=== PATIENT | male | born 1950 | race Hispanic/Latino ===

== ENCOUNTER 2017-09-16 15:34 | Inpatient (IN) | payer OTHER, BC ==
[2017-09-16 16:16] VITALS: BMI 22.5
[2017-09-16] MEDS ORDERED: Sodium Chloride 0.9% 1,000 ML IV STA ×2 (16:19→16:54)
[2017-09-16] MEDS ORDERED: HYDROmorphone 1 mg/ml ISec IVP PRN (16:19)
[2017-09-16] MEDS ORDERED: Mesalamine 800 mg DR Tab PO SCH (16:30)
[2017-09-16] MEDS ORDERED: HYDROmorphone 0.5 mg/0.5 ml ISec IVP PRN (17:20)
[2017-09-16] MEDS: guaiFENesin-DM 600-30 mg ER Tab PO SCH (17:45)
[2017-09-16] MEDS: MethylPREDNISolone 40 mg Vial IVP SCH ×2 (17:47→23:51)
[2017-09-16] MEDS ORDERED: Piperacillin/Tazobact 3.375 gm 100 ML IVPB SCH (18:00)
[2017-09-16] MEDS ORDERED: Influenza Vaccine 60 mcg/0.5 mL SYR (4YR UP) IM ONE (21:06)
[2017-09-16] MEDS ORDERED: Pneumococcal 23-Valent Vaccine IM ONE (21:06)
[2017-09-16] MEDS: Mesalamine 800 mg DR Tab PO SCH (21:25)
[2017-09-16] MEDS: Piperacillin/Tazobact 3.375 gm 100 ML IVPB SCH (23:53)
[2017-09-17] MEDS: MethylPREDNISolone 40 mg Vial IVP SCH ×4 (05:12→22:07)
[2017-09-17] MEDS: guaiFENesin-DM 600-30 mg ER Tab PO SCH (05:14)
[2017-09-17] MEDS: Mesalamine 800 mg DR Tab PO SCH ×3 (05:14→22:05)
[2017-09-17] MEDS: Piperacillin/Tazobact 3.375 gm 100 ML IVPB SCH ×3 (05:15→17:58)
[2017-09-17 07:24] LABS: BASO # 0.02 K/mm3 (0.0-2.0); BASO % 0.2 % (0.0-3.0); GRAN # 7.95 (1.4-6.5); GRAN % 86.5 % (50.0-68.0); HEMOGLOBIN 9.7 g/dL (14.0-18.0); LYMPH # 0.7 (1.2-3.4); MEAN CORPUSCULAR HGB CONC 33.7 g/dl (31.0-37.0); MEAN PLATELET VOLUME 9.2 fl (7.0-11.0); MONO # 0.5 (0.1-0.6); MONO % 5.3 % (1.0-6.0); RBC 3.35 10^6/uL (3.5-6.1); RED CELL DISTRIBUTION WIDTH 15.1 % (11.5-14.5); WHITE BLOOD COUNT 9.2 10^3/ul (4.5-11.0)
[2017-09-17 08:09] LABS: ALB/GLOB RATIO 0.8 (1.1-1.8); ALBUMIN 2.5 g/dL (3.0-4.8); ALT/SGPT 43 U/L (7-56); AST/SGOT 37 U/L (17-59); BLOOD UREA NITROGEN 24 mg/dL (7-21); CALCIUM 8.2 mg/dL (8.4-10.5); GFR AFRICAN-AMERICAN > 60; GFR NON-AFRICAN AMERICAN 51
[2017-09-17] MEDS ORDERED: Sodium Chloride 0.45% 1,000 ML IV SCH (09:45)
--- NOTE | 2017-09-17 12:07 | PN ---
DATE: 09/17/2017 SUBJECTIVE: The patient is lying in bed comfortable. He continues to have some diarrhea, but it appears to be less frequent and less watery. He denies any bleeding from the rectum. He denies any abdominal cramps. He is tolerating full liquid diet. PHYSICAL EXAMINATION: VITAL SIGNS: Reveal temperature of 98.2, blood pressure 130/72, heart rate of 70. HEENT: Reveal sclerae to be white. Conjunctivae pale. NECK: Supple. CHEST: Reveal lungs to be clear. HEART: Reveals a regular rate and rhythm. ABDOMEN: Soft, nontender. No mass. EXTREMITIES: Show no edema. LABORATORY DATA: Reveal white blood cell count 9.2, hemoglobin 9.7. Electrolytes reveal BUN 24, creatinine 1.4, blood sugar 142, albumin of 2.5. IMPRESSION: Acute pancolitis, most likely ulcerative colitis. Biopsies revealed acute colitis without any evidence of granulomas or evidence of a viral infection. RECOMMENDATIONS: 1. Continue Solu-Medrol 60 mg IV q.6h. If the patient continues to improve, hopefully we can start to taper the high dose steroids. 2. I will advance the patient to a low-fat, low residue diet. Note: Stool cultures, O and P, and C. diff have all been negative. Quinn Pepper MD
--- NOTE | 2017-09-17 12:35 | HP ---
HISTORY OF PRESENT ILLNESS: He is now admitted to the Transitional Care Unit for further care and treatment of his issues. He was originally sent to the emergency room, having diarrhea for few days, he was not doing well. He had come to the emergency room. He had nausea, vomiting, Crohn's inflammation and flare-up, severe abdominal pain. Now, he is on hospital and he did fairly well, and now, he needs further treatment and care, so he was changed to the TCU where he has further care, has been seen by GI and Infectious Disease. He has Crohn's colitis, SIRS, abdominal pain, anemia, renal insufficiency, low potassium, hypertension, macular degeneration, hypothyroidism, and prostate problems. SOCIAL HISTORY: He never smoked. No drugs. No alcohol. FAMILY HISTORY: There is hypertension in the family. MEDICATIONS: He is currently on IV fluids, Asacol, Dilaudid, Protonix, Solu-Medrol 60 IV q. 8, Tessalon Perles, Tylenol, Zofran and Zosyn. ALLERGIES: HE HAS NO KNOWN DRUG ALLERGIES. REVIEW OF SYSTEMS: He has no acute vision changes or hearing changes. No sore throat. No chest pain. No shortness of breath. He is having abdominal pain. It is not severe as it was when he came in, some cramping, some gas, lots of diarrhea, no more blood, no more nauseousness, and no leg pain. PHYSICAL EXAMINATION: VITAL SIGNS: He has a 98.2 temp, 70 pulse, 130/72 blood pressure, 15 respiratory rate, and 95% O2 saturation on room air. HEENT: Head is atraumatic and normocephalic. Extraocular muscles are intact. Pupils are equal and reactive to light and accommodation. Throat is dry. NECK: Supple. HEART: Regular rate. LUNGS: Decreased breath sounds and clear to auscultation. ABDOMEN: Soft but distended. There are some bowel sounds. No guarding. No rebound. No CVA tenderness. EXTREMITIES: No edema. NEUROLOGIC: GCS is 15. Cranial nerves II through XII grossly intact. Speech is normal. SKIN: Warm and dry. GENERAL: He is alert and oriented x3. THYROID: Midline. No palpable lymphadenopathy. He is comfortable. He understands that he is in TCU for further IV treatment for his Crohn's colitis and physical therapy. LABORATORY DATA: He has 137 sodium, potassium 4.5, BUN 24, and creatinine 1.4. GFR is 51. Sugar is 142. Calcium is 8.2. Total bilirubin is 0.4. AST is 37, ALT is 43, alk phos is 60. Total protein is 5.8. Albumin is 2.5. White count 5.2, hemoglobin 9.7, hematocrit 28.8, and platelets of 211. ASSESSMENT AND PLAN: We will continue with aggressive treatment and care. We will check his labs tomorrow. I have encouraged him to get out of bed to chair, physical therapy daily, and he has exacerbation of Crohn's colitis with systemic inflammatory response syndrome, abdominal pain, anemia, renal insufficiency and low potassium. Solo Franklin DO
--- NOTE | 2017-09-17 12:39 | CP.PCM.CON ---
History of Present Illness - History of Present Illness History of Present Illness: 67 year old male with PMH of Crohn's disease, hypothyroidism, macular degeneration was initially admitted in [facility] because probable acute exacerbation of Crohn's Disease. He also developed fever and is currently on antibiotics. He has been clinically getting better on antibiotics and steroids and is now transferred to the [facility] for continued medical therapy and physical rehab. Infectious Diseases consult is requested to continue his antibiotic therapy. Currently the patient has less diarrhea, no abdominal pain, no fevers or chills , no nausea or vomiting, no chest pain, no SOB, no headache or dizziness, no sore throat, no cough or colds, no dysuria. Review of Systems - Review of Systems All systems: reviewed and no additional remarkable complaints except (as per HPI ) Past Patient History - Infectious Disease Hx of Infectious Diseases: None - Past Social History Smoking Status: Never Smoked - CARDIAC Hx Hypertension: Yes - HEENT Hx HEENT Problems: Yes (eyeglasses) Hx Macular Degeneration: Yes - RENAL Other/Comment: dx 4 yrs ago with nephrotic syndrome lost 40 lbs had 4 chemo trreatments - ENDOCRINE/METABOLIC Hx Hypothyroidism: Yes - HEMATOLOGICAL/ONCOLOGICAL Hx Blood Transfusions: Yes (2 BT yesterday 08/14/18) Hx Blood Transfusion Reaction: Yes (High fever) - MUSCULOSKELETAL/RHEUMATOLOGICAL Hx Falls: No - GASTROINTESTINAL Hx Gastrointestinal Disorders: Yes (crohns dx 2015) - GENITOURINARY/GYNECOLOGICAL Hx Reproductive Disorders: No - PSYCHIATRIC Hx Substance Use: No - SURGICAL HISTORY Hx Surgeries: Yes - ANESTHESIA Hx Anesthesia Reactions: No Hx Malignant Hyperthermia: No Meds Allergies/Adverse Reactions: Allergies Allergy/AdvReac Type Severity Reaction Status Date / Time No Known Allergies Allergy Unverified 09/12/17 06:26 - Medications Medications: Current Medications Acetaminophen (Tylenol 325mg Tab) 650 mg PO Q6H PRN; Protocol PRN Reason: Fever >100.4 F Guaifenesin/Dextromethorphan (Mucinex-Dm 600-30 Mg) 1 tab PO Q12H ALEXANDRO PRN Reason: Protocol Last Admin: 09/17/17 05:14 Dose: 1 tab Hydromorphone HCl (Dilaudid) 1 mg IVP Q4 PRN; Protocol PRN Reason: Pain, moderate (4-7) Piperacillin Sod/Tazobactam Sod (Zosyn 3.375 In Ns 100ml) 100 mls @ 200 mls/hr IVPB Q6 ALEXANDRO PRN Reason: Protocol Last Admin: 09/17/17 05:15 Dose: 200 mls/hr Mesalamine (Asacol Hd 800mg) 1,600 mg PO 0600,1400,2200 ALEXANDRO PRN Reason: Protocol Last Admin: 09/17/17 05:14 Dose: 1,600 mg Methylprednisolone (Solu-Medrol) 60 mg IVP Q6H ALEXANDRO PRN Reason: Protocol Last Admin: 09/17/17 05:12 Dose: 60 mg Ondansetron HCl (Zofran Inj) 4 mg IVP Q4H PRN; Protocol PRN Reason: Nausea/Vomiting Pantoprazole Sodium (Protonix Inj) 40 mg IVP 0600 ALEXANDRO PRN Reason: Protocol Last Admin: 09/17/17 05:15 Dose: 40 mg Physical Exam - Constitutional Appears: Non-toxic - Head Exam Head Exam: NORMAL INSPECTION - ENT Exam ENT Exam: Mucous Membranes Moist - Neck Exam Neck exam: Negative for: Meningismus - Respiratory Exam Respiratory Exam: Decreased Breath Sounds - Cardiovascular Exam Cardiovascular Exam: +S1, +S2 - GI/Abdominal Exam GI & Abdominal Exam: Soft. absent: Tenderness Results - Vital Signs Recent Vital Signs: Last Vital Signs Temp 98.2 F 09/16/17 20:59 Pulse 70 09/16/17 20:59 Resp 15 09/16/17 20:59 BP 130/72 09/16/17 20:59 Pulse Ox 95 09/16/17 17:46 - Labs Result Diagrams: 09/17/17 07:00 09/17/17 07:00 Assessment & Plan - Assessment and Plan (Free Text) Plan: Assessment Systemic Inflammatory Response Syndrome, consider due to acute exacerbation of Crohn's disease / colitis, R/O sepsis Crohn's disease hypothyroidism macular degeneration Plan continue Zosyn day 3; follow up blood cx; stool cx and stool for C. diff. are negative continue patient on steroids will continue to monitor clinically
[2017-09-18] MEDS: Piperacillin/Tazobact 3.375 gm 100 ML IVPB SCH ×3 (00:34→11:18)
[2017-09-18] MEDS: MethylPREDNISolone 40 mg Vial IVP SCH ×2 (05:54→11:16)
[2017-09-18] MEDS: Mesalamine 800 mg DR Tab PO SCH ×3 (05:54→21:32)
[2017-09-18 06:18] LABS: HEMOGLOBIN 9.6 g/dL (14.0-18.0); MEAN CELL VOLUME 86.2 fl (80.0-105.0); MEAN CORPUSCULAR HEMOGLOBIN 28.7 pg (25.0-35.0); MEAN CORPUSCULAR HGB CONC 33.3 g/dl (31.0-37.0); MEAN PLATELET VOLUME 8.7 fl (7.0-11.0); RBC 3.34 10^6/uL (3.5-6.1); RED CELL DISTRIBUTION WIDTH 15.1 % (11.5-14.5); WHITE BLOOD COUNT 11.1 10^3/ul (4.5-11.0)
[2017-09-18 06:47] LABS: ALBUMIN 2.5 g/dL (3.0-4.8); CALCIUM 8.2 mg/dL (8.4-10.5)
[2017-09-18 06:51] LABS: ALB/GLOB RATIO 0.8 (1.1-1.8)
[2017-09-18] MEDS ORDERED: Pantoprazole 40mg/100ml IVPB 40 MG/100 ML BAG IVPB SCH (10:00)
[2017-09-18] MEDS: Sodium Chloride 0.45% 1,000 ML IV SCH (11:15)
--- NOTE | 2017-09-18 12:20 | CP.PCM.PN ---
Subjective - Date & Time of Evaluation Date of Evaluation: 09/18/17 Time of Evaluation: 12:10 - Subjective Subjective: Comfortable in bed, not in distress, less diarrhea, no abdominal pain or nausea. Objective - Vital Signs/Intake and Output Vital Signs (last 24 hours): Temp Pulse Resp BP Pulse Ox 98.5 F 58 L 18 129/69 97 09/17/17 16:00 09/17/17 16:00 09/17/17 16:00 09/17/17 16:00 09/17/17 16:00 - Medications Medications: Current Medications Acetaminophen (Tylenol 325mg Tab) 650 mg PO Q6H PRN; Protocol PRN Reason: Fever >100.4 F Benzonatate (Tessalon Perles) 100 mg PO TID [facility] Last Admin: 09/17/17 17:58 Dose: 100 mg Hydromorphone HCl (Dilaudid) 1 mg IVP Q4 PRN; Protocol PRN Reason: Pain, moderate (4-7) Piperacillin Sod/Tazobactam Sod (Zosyn 3.375 In Ns 100ml) 100 mls @ 200 mls/hr IVPB Q6 ALEXANDRO PRN Reason: Protocol Last Admin: 09/18/17 05:54 Dose: 200 mls/hr Sodium Chloride (Sodium Chloride 0.45%) 1,000 mls @ 30 mls/hr IV .Q24H [facility] Last Admin: 09/17/17 11:22 Dose: 30 mls/hr Pantoprazole Sodium (Protonix 40mg Ivpb) 40 mg in 100 mls @ 200 mls/hr IVPB 1000 ALEXANDRO Mesalamine (Asacol Hd 800mg) 1,600 mg PO 0600,1400,2200 ALEXANDRO PRN Reason: Protocol Last Admin: 09/18/17 05:54 Dose: 1,600 mg Methylprednisolone (Solu-Medrol) 60 mg IVP Q6H ALEXANDRO PRN Reason: Protocol Last Admin: 09/18/17 05:54 Dose: 60 mg Ondansetron HCl (Zofran Inj) 4 mg IVP Q4H PRN; Protocol PRN Reason: Nausea/Vomiting - Labs Labs: 09/18/17 06:00 09/18/17 06:00 - Constitutional Appears: Non-toxic - Head Exam Head Exam: NORMAL INSPECTION - ENT Exam ENT Exam: Mucous Membranes Moist - Neck Exam Neck Exam: absent: Meningismus - Respiratory Exam Respiratory Exam: Decreased Breath Sounds - Cardiovascular Exam Cardiovascular Exam: +S1, +S2 - GI/Abdominal Exam GI & Abdominal Exam: Soft. absent: Tenderness Assessment and Plan - Assessment and Plan (Free Text) Plan: Assessment Systemic Inflammatory Response Syndrome, consider due to acute exacerbation of Crohn's disease / colitis, R/O sepsis Crohn's disease hypothyroidism macular degeneration Plan on Zosyn day 4-5; blood cx, stool cx and stool for C. diff. are negative - as discussed with Dr. Pepper, will d/c antibiotics today continue patient on steroids will continue to monitor clinically
--- NOTE | 2017-09-18 12:53 | PN ---
DATE: SUBJECTIVE: I saw Jorge Luis resting comfortably in bed in Nutritional Care Unit. He actually looks better today. He is eating little bit better. He is trying physical therapy. MEDICATIONS: He is on Asacol, Dilaudid for pain, Protonix, IV fluids, Solu-Medrol 60 IV q.6 hours, Tessalon, Tylenol, Zofran, and Zosyn. PHYSICAL EXAMINATION: VITAL SIGNS: He has temperature of 98.5, pulse of 58, blood pressure of 129/69, respiratory rate 18, and 97% O2 saturation on room air. HEENT: Head is atraumatic and normocephalic. HEART: Regular rate. LUNGS: Clear to auscultation. ABDOMEN: Soft. Positive bowel sounds. No guarding. EXTREMITIES: No edema. LABORATORY DATA: He has a white count of 11.1 from steroids, hemoglobin 9.6, hematocrit 28.8, and platelets 217. He has a sodium of 138, potassium 4.2, BUN 27, creatinine 1.6, going up little bit. GFR is 44. Sugar is 137,calcium is 8.2, total bilirubin 0.2. AST is 39, ALT is 45, alkaline phosphatase 57, and total protein 5.7. He is being seen by Infectious Disease and GI. He has systemic inflammatory response secondary to Crohn's disease and colitis. He is on Zosyn. As per GI, we will continue with Solu-Medrol. He is on IV fluids at 30 and increased it to 60. Hopefully, that will help with his kidney functions, have him drink more water, we will check his labs tomorrow. Solo Franklin DO MTDEdgardo
--- NOTE | 2017-09-18 13:44 | PN ---
DATE: 09/18/2017 SUBJECTIVE: The patient is lying in bed. He continues to improve from his blanton colitis. His bowel movements have mildly becoming more formed than less frequent. He has only had two loose bowel movements over the last 18 hours. He also states that he feels stronger. MEDICATIONS: Include Asacol 1600 mg 3 times a day, pantoprazole 40 mg IV once a day, Solu-Medrol 60 mg IV q.6 hours, and Zosyn 3.37 g IV q.6 hours. OBJECTIVE: VITAL SIGNS: Reveal temperature of 98.5, blood pressure of 129/69, and heart rate of 58. HEENT: Reveal sclerae to be white. Conjunctivae pale. NECK: Supple. CHEST: Reveal lungs to be clear. HEART: Reveals regular rate and rhythm. ABDOMEN: Soft and nontender. EXTREMITIES: Show trace pedal edema. LABORATORY DATA: Reveal white blood cell count of 11.1 and hemoglobin of 9.6. Chemistries reveal BUN of 27 and creatinine of 1.6. Albumin is stable at 2.5. IMPRESSION: Clinically improving blanton colitis, with history of new cough and fever. The patient has been afebrile for several days. RECOMMENDATIONS: 1. I will slowly taper his high dose steroids to Solu-Medrol 60 mg IV q.8 hours. 2. I have discussed antibiotic continuation with Dr. Nicholas. I am concerned about the patient developing superimposed pseudomembranous colitis on his blanton colitis. His IV Zosyn will be discontinued after today. 3. Continue ambulation rehabilitation for generalized deconditioning. Quinn Pepper MD
[2017-09-19] MEDS: Mesalamine 800 mg DR Tab PO SCH ×3 (06:11→21:47)
[2017-09-19] MEDS: Sodium Chloride 0.45% 1,000 ML IV SCH (07:04)
[2017-09-19 07:23] LABS: HEMOGLOBIN 9.8 g/dL (14.0-18.0); MEAN CELL VOLUME 86.9 fl (80.0-105.0); MEAN CORPUSCULAR HEMOGLOBIN 28.5 pg (25.0-35.0); MEAN CORPUSCULAR HGB CONC 32.8 g/dl (31.0-37.0); MEAN PLATELET VOLUME 9.1 fl (7.0-11.0); RBC 3.44 10^6/uL (3.5-6.1); RED CELL DISTRIBUTION WIDTH 15.4 % (11.5-14.5); WHITE BLOOD COUNT 12.7 10^3/ul (4.5-11.0)
[2017-09-19 07:51] LABS: ALB/GLOB RATIO 0.8 (1.1-1.8); ALBUMIN 2.7 g/dL (3.0-4.8); ALT/SGPT 55 U/L (7-56); AST/SGOT 49 U/L (17-59); BLOOD UREA NITROGEN 30 mg/dL (7-21); CALCIUM 8.4 mg/dL (8.4-10.5); GFR AFRICAN-AMERICAN > 60; GFR NON-AFRICAN AMERICAN 51
--- NOTE | 2017-09-19 12:54 | PN ---
DATE: 09/19/2017 SUBJECTIVE: The patient is seen ambulating in the corridor. He states that his bowel movements are beginning to become formed and less watery. They are also less voluminous and less frequent. OBJECTIVE: VITAL SIGNS: Reveal temperature of 97.5, blood pressure of 155/80, and heart rate of 75. HEENT: Reveals sclerae to be white. Conjunctivae pink. NECK: Supple. CHEST: Reveal lungs to be clear. HEART: Exam reveals regular rate and rhythm. ABDOMEN: Soft and nontender. EXTREMITIES: Show no edema. LABORATORY DATA: Reveal white blood cell count of 12.7 and hemoglobin of 9.8. BUN of 30 and creatinine of 1.4. MEDICATIONS: Include Asacol HD 1600 mg 3 times a day, Protonix 40 mg IV once a day, Solu-Medrol 60 mg IV q.8 hours, and Zofran 4 mg q.4 hours p.r.n. nausea and vomiting. IMPRESSION: A 67-year-old male with: 1. Crabtree colitis, clinically improving. 2. Status post systemic inflammatory response syndrome. RECOMMENDATIONS: 1. We will discontinue IV fluids. 2. Continue current medications. Hopefully, his steroids can gradually be reduced with continued clinical improvement. Quinn Pepper MD
--- NOTE | 2017-09-19 21:49 | PN ---
DATE: SUBJECTIVE: I saw Jorge Luis standing in the bathroom, doing well, washing up. He is getting stronger. He does feel little bit swollen today. We stopped the IV fluids. I changed Protonix IV to p.o. Klonopin IV. He is getting now his methylprednisolone 16 mg IV q. 8 hour. I am hoping that will stop the swelling if we do, we might give him a Lasix shot tomorrow if he still feels puffy. Otherwise, he is improving with strength. His bowels are getting better. His breathing looks better. PHYSICAL EXAMINATION: VITAL SIGNS: He has 98.3 temp, 52 pulse, 152/69 blood pressure, 18 respiratory rate, and 95% O2 sat on room air. HEENT: Head is atraumatic and normocephalic. Throat is moist. NECK: Supple. HEART: Regular rate. LUNGS: Clear to auscultation. ABDOMEN: Soft. Mildly distended, but not bad. Positive bowel sounds. No guarding. No rebound. No CVA tenderness. He is moving his bowels. He is eating. EXTREMITIES: No edema, but he just feels bloated. LABORATORY DATA: He has a 138 sodium, potassium 4.2, BUN is 30, creatinine 1.4 with better GFR 51, better sugar is 113, calcium is 8.4, total bilirubin is 0.3, AST is 49, ALT 55, alkaline phosphatase 64 and total protein 5.9. He has a 12.7 white count could be from steroids, 9.8 hemoglobin, better 29.9 hematocrit and 234 of platelets. ASSESSMENT AND PLAN: He is being seen by Infectious Disease and Gastroenterology. He is here for pancolitis, Crohn's, colitis, hyperthyroidism, systemic inflammatory response syndrome and little bit of swelling feeling. We will see if that continues. If it does, we will give him a shot of Lasix. He is only on IV Solu-Medrol. Continue with aggressive treatment and care as per Gastroenterology. Solo Franklin DO
[2017-09-20] MEDS: Mesalamine 800 mg DR Tab PO SCH ×3 (05:20→21:32)
[2017-09-20] MEDS: Pantoprazole 40 mg EC Tab PO SCH (05:20)
[2017-09-20] MEDS ORDERED: Pantoprazole 40mg/100ml IVPB 40 MG/100 ML BAG IVPB SCH (06:00)
[2017-09-20 06:31] LABS: HEMOGLOBIN 9.5 g/dL (14.0-18.0); MEAN CELL VOLUME 86.2 fl (80.0-105.0); MEAN CORPUSCULAR HEMOGLOBIN 28.5 pg (25.0-35.0); MEAN CORPUSCULAR HGB CONC 33.1 g/dl (31.0-37.0); MEAN PLATELET VOLUME 8.9 fl (7.0-11.0); RBC 3.33 10^6/uL (3.5-6.1); WHITE BLOOD COUNT 13.3 10^3/ul (4.5-11.0)
[2017-09-20 06:50] LABS: ALBUMIN 2.6 g/dL (3.0-4.8); ALT/SGPT 56 U/L (7-56); AST/SGOT 48 U/L (17-59); BLOOD UREA NITROGEN 28 mg/dL (7-21); CALCIUM 8.2 mg/dL (8.4-10.5); GFR AFRICAN-AMERICAN > 60; GFR NON-AFRICAN AMERICAN > 60
[2017-09-20 07:07] LABS: ALB/GLOB RATIO 0.9 (1.1-1.8)
[2017-09-20] MEDS: Promethazine DM 6.25 mg-15 mg/5 ml Syrup PO PRN ×2 (10:05→21:32)
--- NOTE | 2017-09-20 11:50 | PN ---
DATE: SUBJECTIVE: I saw Mr. Zapata in the Transitional Care Unit, resting in bed. He is still coughing. He wants something else for the cough. He is presently on Asacol, Feosol, Phenergan DM, which I just added this morning, Protonix, Solu-Medrol 40 IV q. 8 hours, Tessalon Perles to help stop the cough, Tylenol, and Zofran. He is here for pancolitis, SIRS, Crohn's, colitis, hypothyroid and now is having a cough. PHYSICAL EXAMINATION: VITAL SIGNS: He has 98.9 temp, 57 pulse, 138/67 blood pressure, 18 respiratory rate, 90% O2 sat on room air. HEENT: Head is atraumatic and normocephalic. Throat is moist, not red, no mucous. NECK: Supple. No cervical lymphadenopathy. He does not feel sick. HEART: Regular rate. LUNGS: Clear bilaterally. Even with cough, I do not hear any congestion or mucus. ABDOMEN: Soft, nontender. Positive bowel sounds. He is moving his bowels. He is eating. I think the colitis is improving. EXTREMITIES: No edema. LABORATORY DATA: He has a 13.3 white count probably from the steroids, 9.5 hemoglobin, 28.7 hematocrit with 225 platelets. He has a 135 sodium, potassium is 4, BUN 28, creatinine 1.2, better. GFR is greater than 60. Sugar is 112, calcium is 8.2, total bili is 0.4, AST is 48, ALT is 56, alkaline phosphatase 60, total protein 5.6. ASSESSMENT AND PLAN: He is being seen GI and Infectious Disease. When GI decides to stop the Solu-Medrol that is fine in 4 more days now in TCU. I do think it is improving. I added Phenergan DM to his cough medicine regimen. I asked him to get out of bed to chair, do some walks, hoping that he will do very well. We will check his labs tomorrow. Solo Franklin DO
--- NOTE | 2017-09-20 12:08 | CP.PCM.PN ---
Subjective - Date & Time of Evaluation Date of Evaluation: 09/20/17 Time of Evaluation: 11:55 - Subjective Subjective: No more diarrhea, stools are now formed, no fevers, no abdominal pain. Objective - Vital Signs/Intake and Output Vital Signs (last 24 hours): Temp Pulse Resp BP Pulse Ox 98.4 F 67 20 134/69 97 09/20/17 10:23 09/20/17 10:23 09/20/17 10:23 09/20/17 10:23 09/20/17 10:23 Intake and Output: 09/20/17 09/20/17 06:59 18:59 Intake Total 320 Balance 320 - Medications Medications: Current Medications Acetaminophen (Tylenol 325mg Tab) 650 mg PO Q6H PRN; Protocol PRN Reason: Fever >100.4 F Benzonatate (Tessalon Perles) 100 mg PO TID [facility] Last Admin: 09/19/17 17:33 Dose: 100 mg Ferrous Sulfate (Feosol) 324 mg PO TID ALEXANDRO Mesalamine (Asacol Hd 800mg) 1,600 mg PO 0600,1400,2200 ALEXANDRO PRN Reason: Protocol Last Admin: 09/20/17 05:20 Dose: 1,600 mg Methylprednisolone (Solu-Medrol) 40 mg IVP Q8 ALEXANDRO Ondansetron HCl (Zofran Inj) 4 mg IVP Q4H PRN; Protocol PRN Reason: Nausea/Vomiting Pantoprazole Sodium (Protonix Ec Tab) 40 mg PO 0600 [facility] Last Admin: 09/20/17 05:20 Dose: 40 mg Promethazine HCl/Dextromethorphan (Phenergan Dm Syrup) 5 ml PO Q6H PRN; Protocol PRN Reason: Cough Last Admin: 09/20/17 10:05 Dose: 5 ml - Labs Labs: 09/20/17 06:00 09/20/17 06:00 - Constitutional Appears: Non-toxic - Head Exam Head Exam: NORMAL INSPECTION - Respiratory Exam Respiratory Exam: Decreased Breath Sounds - Cardiovascular Exam Cardiovascular Exam: +S1, +S2 - GI/Abdominal Exam GI & Abdominal Exam: Soft. absent: Tenderness Assessment and Plan - Assessment and Plan (Free Text) Plan: Assessment Systemic Inflammatory Response Syndrome, consider due to acute exacerbation of Crohn's disease / colitis Crohn's disease hypothyroidism macular degeneration Plan blood cx, stool cx and stool for C. diff. are negative - will continue to monitor off antibiotics since he is at risk for nosocomial infections continue steroids as per Dr. Pepper
[2017-09-20] MEDS: MethylPREDNISolone 40 mg Vial IVP SCH ×2 (14:35→21:32)
[2017-09-21] MEDS: Pantoprazole 40 mg EC Tab PO SCH (05:47)
[2017-09-21] MEDS: Mesalamine 800 mg DR Tab PO SCH ×3 (05:47→21:40)
[2017-09-21] MEDS: MethylPREDNISolone 40 mg Vial IVP SCH ×3 (05:48→21:40)
[2017-09-21] MEDS: Promethazine DM 6.25 mg-15 mg/5 ml Syrup PO PRN ×2 (05:51→21:46)
[2017-09-21 07:14] LABS: HEMOGLOBIN 9.8 g/dL (14.0-18.0); MEAN CELL VOLUME 86.4 fl (80.0-105.0); MEAN CORPUSCULAR HEMOGLOBIN 28.4 pg (25.0-35.0); MEAN CORPUSCULAR HGB CONC 32.9 g/dl (31.0-37.0); MEAN PLATELET VOLUME 9.1 fl (7.0-11.0); RBC 3.45 10^6/uL (3.5-6.1); RED CELL DISTRIBUTION WIDTH 14.9 % (11.5-14.5); WHITE BLOOD COUNT 13.5 10^3/ul (4.5-11.0)
[2017-09-21 07:27] LABS: ALBUMIN 2.6 g/dL (3.0-4.8); ALT/SGPT 54 U/L (7-56); AST/SGOT 45 U/L (17-59); BLOOD UREA NITROGEN 27 mg/dL (7-21); CALCIUM 8.4 mg/dL (8.4-10.5); GFR AFRICAN-AMERICAN > 60; GFR NON-AFRICAN AMERICAN > 60
[2017-09-21 08:01] LABS: ALB/GLOB RATIO 0.8 (1.1-1.8)
--- NOTE | 2017-09-21 11:01 | PN ---
DATE: SUBJECTIVE: I saw him resting comfortable in bed in the Transitional Care Unit. He is eating well, going to the bathroom well. No diarrhea. No abdominal pain. No cramping. No nausea, vomiting, constipation or diarrhea. Actually, he is on Asacol, Feosol, Phenergan DM, Protonix, Solu-Medrol is now down to IV q.8 hours from IV q.6 hours, Tessalon, Tylenol, and Zofran. PHYSICAL EXAMINATION: VITAL SIGNS: He has 97.8 temp, 47 pulse, 186/75 blood pressure, 18 respiratory rate, 97% O2 sat on room air. HEENT: Head is atraumatic and normocephalic. HEART: Regular rate. LUNGS: Decreased breath sounds, but clear. ABDOMEN: Soft and nontender. Positive bowel sounds. No guarding. No rebound. No CVA tenderness. EXTREMITIES: No edema. LABORATORY DATA: He has 13.5 white count from the steroids, 9.8 hemoglobin, and 29.8 hematocrit with 245 platelets. Sodium 135, potassium 3.9, BUN 27, creatinine 1.1, GFR is 60, sugar is from the Solu-Medrol, calcium is 8.4, total bili is 0.4, AST is 45, ALT is 54, alkaline phosphatase is 59, and total protein is 5.7. ASSESSMENT AND PLAN: He is being seen by Infectious Disease and By Dr. Pepper, book illustrator. He has three more days in the TCU. He has no more diarrhea. His stools are formed. He had systemic inflammatory response syndrome, acute exacerbation of Crohn's colitis, and hypothyroidism. We will continue to watch him closely as per GI. Check his labs tomorrow. I encouraged him to get out of the chair every day, go for walks, participate in physical therapy, and take his medications. Solo Franklin DO [facility]
--- NOTE | 2017-09-21 11:56 | PN ---
DATE: 09/21/2017 SUBJECTIVE: The patient continues to slowly improve. He has had 3 semi-formed bowel movements in the last 18 hours. He denies any abdominal pain or rectal bleeding. MEDICATIONS: Currently include Asacol HD 1600 mg 3 times a day, Feosol 324 mg 3 times a day, Phenergan syrup 1 teaspoon q.6 hours as needed, Protonix 40 mg once a day, Solu-Medrol 40 mg IV q.8 hours, and Tessalon Perles 100 mg t.i.d. PHYSICAL EXAMINATION: VITAL SIGNS: Reveal temperature of 97.8, blood pressure 186/75, and heart rate of 47. HEENT: Reveal sclerae to be white. Conjunctivae pale. NECK: Supple. CHEST: Reveal lungs to be clear. HEART: Reveals a regular rate and rhythm. There is a 2/6 systolic murmur. ABDOMEN: Soft and nontender. EXTREMITIES: Show trace pedal edema. LABORATORY DATA: Reveal white blood cell count 13.5 and hemoglobin 5.8. Chemistries reveal albumin up to 2.6, BUN 27, and creatinine 1.1. IMPRESSION: 1. Crabtree ulcerative colitis. 2. Anemia. 3. Upper respiratory tract infection. RECOMMENDATIONS: 1. Continue Solu-Medrol 40 mg IV q.8 hours. 2. I have discussed this case with Dr. Solo Franklin. The patient will need to be on tapering doses of prednisone upon discharge from the hospital. Quinn Pepper MD
[2017-09-22] MEDS: MethylPREDNISolone 40 mg Vial IVP SCH ×3 (05:50→21:23)
[2017-09-22] MEDS: Pantoprazole 40 mg EC Tab PO SCH (05:50)
[2017-09-22] MEDS: Mesalamine 800 mg DR Tab PO SCH ×3 (05:50→21:23)
[2017-09-22 07:02] LABS: ALBUMIN 2.6 g/dL (3.0-4.8); ALT/SGPT 53 U/L (7-56); AST/SGOT 44 U/L (17-59); BLOOD UREA NITROGEN 26 mg/dL (7-21); CALCIUM 8.4 mg/dL (8.4-10.5); GFR AFRICAN-AMERICAN > 60; GFR NON-AFRICAN AMERICAN > 60
[2017-09-22 07:16] LABS: ALB/GLOB RATIO 0.9 (1.1-1.8)
[2017-09-22 07:17] LABS: HEMOGLOBIN 10.4 g/dL (14.0-18.0); MEAN CELL VOLUME 86.7 fl (80.0-105.0); MEAN CORPUSCULAR HEMOGLOBIN 28.8 pg (25.0-35.0); MEAN CORPUSCULAR HGB CONC 33.2 g/dl (31.0-37.0); MEAN PLATELET VOLUME 9.3 fl (7.0-11.0); RBC 3.61 10^6/uL (3.5-6.1); RED CELL DISTRIBUTION WIDTH 14.9 % (11.5-14.5); WHITE BLOOD COUNT 13.4 10^3/ul (4.5-11.0)
[2017-09-22] MEDS: Promethazine DM 6.25 mg-15 mg/5 ml Syrup PO PRN ×2 (10:11→21:23)
--- NOTE | 2017-09-22 12:33 | CP.PCM.PN ---
Subjective - Date & Time of Evaluation Date of Evaluation: 09/22/17 Time of Evaluation: 10:30 - Subjective Subjective: Stools are more formed, no fevers, not in distress. Objective - Vital Signs/Intake and Output Vital Signs (last 24 hours): Temp Pulse Resp BP Pulse Ox 98.7 F 59 L 18 159/78 H 95 09/21/17 17:40 09/21/17 17:40 09/21/17 17:40 09/21/17 17:40 09/21/17 17:40 Intake and Output: 09/22/17 09/22/17 06:59 18:59 Intake Total 420 Balance 420 - Medications Medications: Current Medications Acetaminophen (Tylenol 325mg Tab) 650 mg PO Q6H PRN; Protocol PRN Reason: Fever >100.4 F Benzonatate (Tessalon Perles) 100 mg PO TID [facility] Last Admin: 09/22/17 10:10 Dose: 100 mg Ferrous Sulfate (Feosol) 324 mg PO TID [facility] Last Admin: 09/22/17 10:09 Dose: 324 mg Hydrochlorothiazide (Hydrodiuril) 25 mg PO DAILY [facility] Mesalamine (Asacol Hd 800mg) 1,600 mg PO 0600,1400,2200 [facility] PRN Reason: Protocol Last Admin: 09/22/17 05:50 Dose: 1,600 mg Methylprednisolone (Solu-Medrol) 40 mg IVP Q8 [facility] Last Admin: 09/22/17 05:50 Dose: 40 mg Ondansetron HCl (Zofran Inj) 4 mg IVP Q4H PRN; Protocol PRN Reason: Nausea/Vomiting Pantoprazole Sodium (Protonix Ec Tab) 40 mg PO 0600 [facility] Last Admin: 09/22/17 05:50 Dose: 40 mg Promethazine HCl/Dextromethorphan (Phenergan Dm Syrup) 5 ml PO Q6H PRN; Protocol PRN Reason: Cough Last Admin: 09/22/17 10:11 Dose: 5 ml - Labs Labs: 09/22/17 06:15 09/22/17 06:15 - Constitutional Appears: Non-toxic - Head Exam Head Exam: NORMAL INSPECTION - ENT Exam ENT Exam: Mucous Membranes Moist - Neck Exam Neck Exam: absent: Meningismus - Respiratory Exam Respiratory Exam: Decreased Breath Sounds - Cardiovascular Exam Cardiovascular Exam: +S1, +S2 - GI/Abdominal Exam GI & Abdominal Exam: Soft. absent: Tenderness Assessment and Plan - Assessment and Plan (Free Text) Plan: Assessment Systemic Inflammatory Response Syndrome, consider due to acute exacerbation of Crohn's disease / colitis Crohn's disease hypothyroidism macular degeneration Plan blood cx, stool cx and stool for C. diff. are negative - will continue to monitor off antibiotics since he is at risk for hospital-acquired infections continue steroids as per Dr. Pepper
--- NOTE | 2017-09-22 13:56 | PN ---
DATE: LOCATION: I saw him in the TCU. SUBJECTIVE: He is actually sitting out of bed to chair. He slept well. He is taking his medications well. He is eating well and going to the bathroom better. MEDICATIONS: He is on Asacol, Feosol, Phenergan, Protonix, Solu-Medrol 40 mg IV q. 8 hours., Tessalon Perles, Tylenol, and Zofran. PHYSICAL EXAMINATION VITAL SIGNS: He has 98.7 temperature, /78 blood pressure, 18 respiratory rate, and 95% on O2 saturation room air. HEENT: Head is atraumatic and normocephalic. HEART: Regular rate. LUNGS: Clear to auscultation. ABDOMEN: Soft and nontender. Positive bowel sounds. No guarding or rebound. No CVA tenderness. EXTREMITIES: No edema. LABORATORY DATA: He has a 13.4 white count, 10.4 hemoglobin, 31.3 hematocrit, with a 255 platelet. He has a 135 sodium, potassium of 3.7, BUN of 26, and creatinine of 1.1, GFR is greater than 60, sugars are 105, calcium is 8.4, and total bilirubin is 0.5. AST is 44, ALT is 53, alkaline phosphatase of 62, and total protein is 5.6. ASSESSMENT AND PLAN: He is being seen by Gastroenterology and by Infectious Diseases. He is here for pancolitis, systemic inflammatory response syndrome, Crohn's colitis, hypothyroidism, and cough. He is definitely improving overall. Also some anemia. The plan is to discharge him in two days on , he will be on prednisone 30 mg in the morning, and prednisone 20 mg at night, plus his regular medications. We will check his laboratories tomorrow and I encouraged him of physical therapy. Solo Franklin DO MTDEdgardo
--- NOTE | 2017-09-22 13:57 | PN ---
DATE: 09/22/2017 SUBJECTIVE: The patient is lying in bed. He states that his bowel movements were semiformed this morning. They are less frequent and less watery. He denies any abdominal pain. MEDICATIONS: His medications currently include mesalamine 1600 mg 3 times a day, Feosol 324 mg 3 times a day with food, pantoprazole 40 mg once a day, Solu-Medrol 40 mg IV q.8 hours, and Tessalon Perles 100 mg 3 times a day. PHYSICAL EXAMINATION: VITAL SIGNS: Reveal temperature of 98.7, blood pressure 159/78, and heart rate of 59. HEENT: Reveal sclerae to be white. Conjunctivae pink. NECK: Supple. CHEST: Reveal lungs to be clear. HEART: Reveals a regular rate and rhythm. ABDOMEN: Soft and nontender. EXTREMITIES: Show no edema. LABORATORY DATA: Reveals white blood cell count 13.4 and hemoglobin 10.4. Chemistries reveal BUN 26 and creatinine 1.1. IMPRESSION: Pancolitis secondary to ulcerative colitis, slowly improving. RECOMMENDATIONS: 1. Continue Solu-Medrol at 40 mg IV q.8 hours. 2. Continue Asacol 1600 mg 3 times a day. 3. Continue iron replacement. 4. I will give the patient 1 dose of hydrochlorothiazide 25 mg for fluid retention and pedal edema. Quinn Pepper MD
[2017-09-23] MEDS: Pantoprazole 40 mg EC Tab PO SCH (06:14)
[2017-09-23] MEDS: MethylPREDNISolone 40 mg Vial IVP SCH ×3 (06:14→21:19)
[2017-09-23] MEDS: Mesalamine 800 mg DR Tab PO SCH ×3 (06:14→21:19)
[2017-09-23 07:00] LABS: HEMOGLOBIN 10.8 g/dL (14.0-18.0); MEAN CELL VOLUME 86.9 fl (80.0-105.0); MEAN CORPUSCULAR HEMOGLOBIN 28.9 pg (25.0-35.0); MEAN CORPUSCULAR HGB CONC 33.2 g/dl (31.0-37.0); MEAN PLATELET VOLUME 9.1 fl (7.0-11.0); RBC 3.74 10^6/uL (3.5-6.1); RED CELL DISTRIBUTION WIDTH 15.4 % (11.5-14.5); WHITE BLOOD COUNT 12.6 10^3/ul (4.5-11.0)
[2017-09-23 07:09] LABS: ALB/GLOB RATIO 0.9 (1.1-1.8); ALBUMIN 2.8 g/dL (3.0-4.8); ALT/SGPT 53 U/L (7-56); AST/SGOT 33 U/L (17-59); BLOOD UREA NITROGEN 26 mg/dL (7-21); CALCIUM 8.8 mg/dL (8.4-10.5); GFR AFRICAN-AMERICAN > 60; GFR NON-AFRICAN AMERICAN > 60
--- NOTE | 2017-09-23 10:56 | PN ---
DATE: 09/23/2017 SUBJECTIVE: The patient finally had formed bowel movements this morning. He has had two bowel movements in the last 12 hours. He denies any rectal bleeding. He denies any abdominal pain. PHYSICAL EXAMINATION: VITAL SIGNS: Reveal temperature of 98.2, blood pressure 171/86, heart rate of 70. HEENT: Reveal sclerae to be white. Conjunctivae pale. NECK: Supple. CHEST: Reveal lungs to be clear. HEART: Exam reveals regular rate and rhythm. ABDOMEN: Soft, nontender. EXTREMITIES: Show no pedal edema. LABORATORY DATA: Revealed white blood cell count 12.6, hemoglobin 10.8. Chemistries reveal BUN 26, creatinine 1.1, albumin is 2.8. IMPRESSION: 1. Crabtree ulcerative colitis. 2. Anemia. RECOMMENDATIONS: 1. Continue Solu-Medrol 40 mg IV q. 8 hours. 2. Continue Asacol HD 1600 mg 3 times a day. 3. Continue iron replacement. Quinn Pepper MD
--- NOTE | 2017-09-23 13:25 | PN ---
DATE: 09/23/2017 SUBJECTIVE: I saw Jorge Luis resting comfortably in bed. He slept fairly well. He has no complaints. He is still on his Asacol, Feosol, HydroDIURIL, Norvasc, Phenergan, Protonix, Solu-Medrol, Tessalon, Tylenol, and Zofran. PHYSICAL EXAMINATION: VITAL SIGNS: 98.2 temperature, 70 pulse, 171/86 blood pressure, 18 respiratory rate, 95% O2 on room air. I will put him on Norvasc 5 mg for elevated blood pressure. HEENT: Head is atraumatic and normocephalic. HEART: Regular rate. LUNGS: Clear to auscultation. ABDOMEN: Mildly distended, but soft. Positive bowels sounds. No guarding. No rebound or CVA tenderness. The bowels are okay. EXTREMITIES: No edema. LABORATORY DATA: He has a 12.6 white count, 10.8 hemoglobin, 32.5 hematocrit with 269 platelets. 135 sodium, potassium 4.2, BUN 26, creatinine 1.1, GFR is greater than 60, sugar is 103, calcium is 8.8, total bilirubin is 0.5, AST is 33, ALT is 53, alkaline phosphatase is 69. Total protein is 5.7. He is being seen by Infectious Disease and GI. ASSESSMENT AND PLAN: Plan is for him to be discharged tomorrow. He will be on prednisone 30 in the morning, prednisone 20 in the afternoon. I will add Norvasc for the blood pressure. I encouraged him to get out of bed to chair, participate in physical therapy. He has pancolitis, Crohn disease, systemic inflammatory response syndrome (SIRS), hypothyroid, hypertension and hopefully he will do well and I will discharge him tomorrow. Solo Franklin DO
--- NOTE | 2017-09-23 14:54 | CP.PCM.PN ---
Subjective - Date & Time of Evaluation Date of Evaluation: 09/23/17 Time of Evaluation: 11:20 - Subjective Subjective: Comfortable in bed, no loose bowel movement, no fevers. Objective - Vital Signs/Intake and Output Vital Signs (last 24 hours): Temp Pulse Resp BP Pulse Ox 98.2 F 70 18 171/86 H 95 09/22/17 17:33 09/22/17 17:33 09/22/17 17:33 09/22/17 17:33 09/21/17 17:40 - Medications Medications: Current Medications Acetaminophen (Tylenol 325mg Tab) 650 mg PO Q6H PRN; Protocol PRN Reason: Fever >100.4 F Amlodipine Besylate (Norvasc) 5 mg PO DAILY [facility] Benzonatate (Tessalon Perles) 100 mg PO TID [facility] Last Admin: 09/22/17 17:55 Dose: 100 mg Ferrous Sulfate (Feosol) 324 mg PO TID [facility] Last Admin: 09/22/17 17:54 Dose: 324 mg Hydrochlorothiazide (Hydrodiuril) 25 mg PO DAILY [facility] Last Admin: 09/22/17 14:48 Dose: 25 mg Mesalamine (Asacol Hd 800mg) 1,600 mg PO 0600,1400,2200 [facility] PRN Reason: Protocol Last Admin: 09/23/17 06:14 Dose: 1,600 mg Methylprednisolone (Solu-Medrol) 40 mg IVP Q8 [facility] Last Admin: 09/23/17 06:14 Dose: 40 mg Ondansetron HCl (Zofran Inj) 4 mg IVP Q4H PRN; Protocol PRN Reason: Nausea/Vomiting Pantoprazole Sodium (Protonix Ec Tab) 40 mg PO 0600 [facility] Last Admin: 09/23/17 06:14 Dose: 40 mg Promethazine HCl/Dextromethorphan (Phenergan Dm Syrup) 5 ml PO Q6H PRN; Protocol PRN Reason: Cough Last Admin: 09/22/17 21:23 Dose: 5 ml - Labs Labs: 09/23/17 06:35 09/23/17 06:35 - Constitutional Appears: Non-toxic - Head Exam Head Exam: NORMAL INSPECTION - Neck Exam Neck Exam: absent: Meningismus - Respiratory Exam Respiratory Exam: Decreased Breath Sounds - Cardiovascular Exam Cardiovascular Exam: +S1, +S2 - GI/Abdominal Exam GI & Abdominal Exam: Soft. absent: Tenderness Assessment and Plan - Assessment and Plan (Free Text) Plan: Assessment Systemic Inflammatory Response Syndrome, consider due to acute exacerbation of Crohn's disease / colitis Crohn's disease hypothyroidism macular degeneration Plan blood cx, stool cx and stool for C. diff. are negative - will continue to monitor off antibiotics since he is at risk for healthcare-associated infections continue steroids as per Dr. Pepper
[2017-09-23] MEDS: Promethazine DM 6.25 mg-15 mg/5 ml Syrup PO PRN (21:19)
[2017-09-24] MEDS: Mesalamine 800 mg DR Tab PO SCH ×2 (05:11→13:14)
[2017-09-24] MEDS: MethylPREDNISolone 40 mg Vial IVP SCH ×2 (05:12→13:15)
[2017-09-24] MEDS: Pantoprazole 40 mg EC Tab PO SCH (05:12)
[2017-09-24] MEDS: Promethazine DM 6.25 mg-15 mg/5 ml Syrup PO PRN (07:02)
[2017-09-24 07:10] VITALS: BP 172/74; PULSE 64
[2017-09-24 07:26] LABS: HEMOGLOBIN 10.5 g/dL (14.0-18.0); MEAN CELL VOLUME 87.1 fl (80.0-105.0); MEAN CORPUSCULAR HEMOGLOBIN 28.2 pg (25.0-35.0); MEAN CORPUSCULAR HGB CONC 32.4 g/dl (31.0-37.0); MEAN PLATELET VOLUME 9.6 fl (7.0-11.0); RBC 3.72 10^6/uL (3.5-6.1); RED CELL DISTRIBUTION WIDTH 15.5 % (11.5-14.5); WHITE BLOOD COUNT 11.9 10^3/ul (4.5-11.0)
[2017-09-24 07:28] VITALS: RESP 16; TEMP 97.9; O2SAT 94
[2017-09-24 08:00] LABS: ALB/GLOB RATIO 0.9 (1.1-1.8); ALBUMIN 2.8 g/dL (3.0-4.8); ALT/SGPT 45 U/L (7-56); AST/SGOT 43 U/L (17-59); BLOOD UREA NITROGEN 27 mg/dL (7-21); CALCIUM 8.6 mg/dL (8.4-10.5); GFR AFRICAN-AMERICAN > 60; GFR NON-AFRICAN AMERICAN > 60
--- NOTE | 2017-09-24 11:36 | PN ---
DATE: 09/24/2017 SUBJECTIVE: The patient continues to improve clinically. He denies any diarrhea. He has been having formed bowel movements. There is no blood in his stools. PHYSICAL EXAMINATION: VITAL SIGNS: Reveal temperature of 97.9, blood pressure 172/74, heart rate 64. HEENT: Reveal sclerae to be white. Conjunctivae pale. NECK: Supple. CHEST AND LUNGS: Clear. HEART: Reveals a regular rate and rhythm. ABDOMEN: Soft, nontender. EXTREMITIES: Show no edema. LABORATORY DATA: Reveal hemoglobin 10.5, white blood cell count 11.9, BUN 27, creatinine 1.1. IMPRESSION: 1. [place]-ulcerative colitis. 2. Anemia. RECOMMENDATIONS: 1. The patient is to be discharged home on prednisone 30 mg in the morning and prednisone 20 mg at night. 2. Continue Asacol 1600 mg three times a day. 3. I have asked the patient to take iron supplements with meals. 4. He is to follow up with me in the office in 1 week. Thank you, Quinn Pepper MD
--- NOTE | 2017-09-24 14:37 | CP.PCM.PN ---
Subjective - Date & Time of Evaluation Date of Evaluation: 09/24/17 Time of Evaluation: 12:30 - Subjective Subjective: Comfortable, no fevers, no diarrhea Objective - Vital Signs/Intake and Output Vital Signs (last 24 hours): Temp Pulse Resp BP Pulse Ox 98.7 F 65 18 143/84 95 09/23/17 16:00 09/23/17 16:00 09/23/17 16:00 09/23/17 16:00 09/23/17 16:00 Intake and Output: 09/23/17 09/24/17 18:59 06:59 Intake Total 420 Balance 420 - Medications Medications: Current Medications Acetaminophen (Tylenol 325mg Tab) 650 mg PO Q6H PRN; Protocol PRN Reason: Fever >100.4 F Amlodipine Besylate (Norvasc) 5 mg PO DAILY [facility] Last Admin: 09/23/17 10:45 Dose: 5 mg Benzonatate (Tessalon Perles) 100 mg PO TID [facility] Last Admin: 09/23/17 14:41 Dose: 100 mg Ferrous Sulfate (Feosol) 324 mg PO TID [facility] Last Admin: 09/23/17 17:55 Dose: 324 mg Hydrochlorothiazide (Hydrodiuril) 25 mg PO DAILY [facility] Last Admin: 09/23/17 10:45 Dose: 25 mg Mesalamine (Asacol Hd 800mg) 1,600 mg PO 0600,1400,2200 [facility] PRN Reason: Protocol Last Admin: 09/24/17 05:11 Dose: 1,600 mg Methylprednisolone (Solu-Medrol) 40 mg IVP Q8 [facility] Last Admin: 09/24/17 05:12 Dose: 40 mg Ondansetron HCl (Zofran Inj) 4 mg IVP Q4H PRN; Protocol PRN Reason: Nausea/Vomiting Pantoprazole Sodium (Protonix Ec Tab) 40 mg PO 0600 [facility] Last Admin: 09/24/17 05:12 Dose: 40 mg Promethazine HCl/Dextromethorphan (Phenergan Dm Syrup) 5 ml PO Q6H PRN; Protocol PRN Reason: Cough Last Admin: 09/23/17 21:19 Dose: 5 ml - Labs Labs: 09/23/17 06:35 09/23/17 06:35 - Constitutional Appears: Non-toxic - Head Exam Head Exam: NORMAL INSPECTION - ENT Exam ENT Exam: Mucous Membranes Moist - Neck Exam Neck Exam: absent: Meningismus - Respiratory Exam Respiratory Exam: Decreased Breath Sounds - Cardiovascular Exam Cardiovascular Exam: +S1, +S2 - GI/Abdominal Exam GI & Abdominal Exam: Soft. absent: Tenderness Assessment and Plan - Assessment and Plan (Free Text) Plan: Assessment Systemic Inflammatory Response Syndrome, consider due to acute exacerbation of Crohn's disease / colitis Crohn's disease hypothyroidism macular degeneration Plan blood cx, stool cx and stool for C. diff. are negative - will continue to monitor off antibiotics since he is at risk for nosocomial infections continue steroids as per Dr. Pepper
--- NOTE | 2017-09-25 12:38 | PN ---
DATE: 09/24/2017 SUBJECTIVE: Jorge Luis Zapata was in the hospital for pancolitis, Crohn's colitis, SIRS, hypertension, hypothyroid, anemia. MEDICATIONS: He is going to be sent home on his Asacol, Feosol, hydrochlorothiazide, Norvasc, Protonix, prednisone 30 in the morning and 20 at night. PHYSICAL EXAMINATION: VITAL SIGNS: He had a 97.9 temp, 64 pulse, 172/74 blood pressure, 16 respiratory rate, 95% saturation on room air. HEAD: Atraumatic, normocephalic. HEART: Regular rate. LUNGS: Clear to auscultation. ABDOMEN: Soft. Positive bowel sounds. EXTREMITIES: No edema. LABORATORY DATA: He had a 11.9 white count, 10.5 hemoglobin, 32.4 hematocrit, with 251 platelets. Sodium 133, potassium is 4, BUN 27, creatinine 1.1, GFR is greater than 60, sugar is 112, calcium is 8.6, total bili is 0.5, AST is 43, ALT is 45, alk phos 76, total protein is 5.8. He will be sent home on the medications. He will be following up with Dr. Pepper, the mattress renovator, and Dr. Franklin on the outpatient. Prescriptions were given. Diet was given. Instructions were given. He should follow up in my office in a week, hopefully he will do very well. Solo Franklin DO MTDD
--- NOTE | 2017-09-25 13:16 | DS ---
HISTORY OF PRESENT ILLNESS: He is being discharged from the [facility]. He did his 8 days there. He is now going to be off his Solu-Medrol. He was there for Crohn's colitis, urinary insufficiency, low potassium, anemia, abdominal pain, and elevated temperatures. He did very well. He is now going home with prednisone 30 mg in the morning and 20 mg at night. He sees Dr. Pepper, the culled fruit packer. His labs are better. He is feeling better, the bowels are better. I hope, he will do very well. I prescribed all prescriptions out for him. PHYSICAL EXAMINATION: VITAL SIGNS: Temperature of 99, pulse of 70, blood pressure 150/80, respirations are 18, and 95% O2 saturation on room air. HEENT: Head atraumatic and normocephalic. HEART: Regular rate. LUNGS: Clear to auscultation. ABDOMEN: Soft and nontender. Positive bowel sounds. EXTREMITIES: No edema. ASSESSMENT AND PLAN: He will be discharged and followed as an outpatient. He will take prednisone twice a day 30 and 20. He is being discharged home from the [facility]. Solo Franklin DO
== END 2017-09-24 15:13 | disposition home or self-care (01) | DRG 386 ==
LOC: TRCU 15:34
PROVIDERS: ADMIT Family Medicine; ATTEND Family Medicine
PROC: 3E0333Z Introduction of Anti-inflammatory into Peripheral Vein, Percutaneous Approach (ICD-10-PCS; 2017-09-16)
PROC: F08Z4ZZ Home Management Treatment (ICD-10-PCS; 2017-09-17)
PROC: F07Z9ZZ Gait Training/Functional Ambulation Treatment (ICD-10-PCS; principal; 2017-09-18)
PROC: F07L6YZ Therapeutic Exercise Treatment of Musculoskeletal System - Lower Back / Lower Extremity using Other Equipment (ICD-10-PCS; 2017-09-20)
DX: K50.10 Crohn's disease of large intestine without complications (principal); R65.10 Systemic inflammatory response syndrome (SIRS) of non-infectious origin without acute organ dysfunction; Z79.899 Other long term (current) drug therapy; H35.30 Unspecified macular degeneration; E03.9 Hypothyroidism, unspecified; D64.9 Anemia, unspecified; J06.9 Acute upper respiratory infection, unspecified; I10 Essential (primary) hypertension